=== PATIENT | male | born 1950 | race American Indian/Alaskan Native ===

== ENCOUNTER 2019-07-29 15:04 | Emergency (ER) | payer MEDICARE ==
--- NOTE | 2019-07-29 15:55 | Emergency Department Report ---
Blank Doc - Documentation Documentation: 69-year-old male that presents with left leg pain after about 4-[address]. This initial assessment/diagnostic orders/clinical plan/treatment(s) is/are subject to change based on patient's health status, clinical progression and re- assessment by fellow clinical providers in the ED. Further treatment and workup at subsequent clinical providers discretion. Patient/guardians urged not to elope from the ED as their condition may be serious if not clinically assessed and managed. Initial orders include: 1- Patient sent to [facility] for further evaluation and treatment 2- US DOppler
[2019-07-29 15:56] VITALS: BP 178/99
--- NOTE | 2019-07-29 16:38 | Vascular Lab Report ---
DUPLEX DOPPLER LOWER EXTREMITY VEINS, LEFT INDICATION: Left leg pain after a 6 hour bus trip. TECHNIQUE: Duplex doppler imaging was performed through the veins of the left lower extremity using venous compr ession and other maneuvers. COMPARISON: None available. FINDINGS: Common femoral vein: Negative. Superficial femoral vein: Negative. Popliteal vein: Negative. Calf veins: Negative. Additional findings: There is no evidence of a popliteal cyst or other abnormality. IMPRESSION: No sonographic evidence for DVT in the left lower extremity. Signer Name: Antelmo Denny MD Signed: 07/29/2019 4:34 PM Workstation Name: [id number]
--- NOTE | 2019-07-29 18:37 | Emergency Department Report ---
Chief Complaint: Extremity Injury, Lower Stated Complaint: LFT UPPER THIGH PAIN Time Seen by Provider: 07/29/19 15:54 - HPI History of Present Illness: This is a 69-year-old gentleman who is not known to this provider previously, visiting from [place], presents to the ER with a complaint of nontraumatic left infra-gluteal pain, left lateral thigh pain, and left inguinal crease pain, that radiates down the mid left lower extremity. The pain has been going on for a few days. There is no other complaints. The patient denies other injuries. On examination, he is neurovascularly intact. there is no facial droop. The tongue is midline. Extraocular movements are intact bilaterally. Patient speaking in full complete sentences. Shoulder shrug is intact bilaterally. Hearing is grossly intact bilaterally. Visual acuity intact to finger counting and color perception at a close distance. 5/5 strength 4 extremities. Sensation intact to light touch in 4 extremities. He has reproducible musculoskeletal tenderness in his left infra-gluteal region, and has pain with active and passive range of motion with left-sided hip abduction, adduction, and rotation. There is no redness, pus or streaking. He had a DVT study which was ordered prior to my evaluation, which was negative for acute disease. The patient does not appear to have an emergent medical condition at this time. He further endorses improvement with Tylenol [id number]. Elevated blood pressure is reviewed and appreciated, he can follow up with his outpatient primary care doctor for this. Vital Signs 07/29/19 15:54 Temperature 98.2 F Pulse Rate 90 Respiratory 20 Rate Blood Pressure 178/99 O2 Sat by Pulse 99 Oximetry 2+ pulses noted in the bilateral upper, lower extremities. There is no long bone tenderness. Musculoskeletal compartments are soft. The pelvis is stable. - Exam Vital Signs: Vital Signs 07/29/19 15:54 Temperature 98.2 F Pulse Rate 90 Respiratory 20 Rate Blood Pressure 178/99 O2 Sat by Pulse 99 Oximetry MSE screening note: Focused history and physical exam performed. Due to findings the following was ordered: ED Disposition for MSE Condition: Stable
[2019-07-29] MEDS ORDERED: ACETAMINOPHEN 325 MG TAB PO ONE (18:48)
[2019-07-29] MEDS ORDERED: IBUPROFEN 600 MG TAB PO ONE (18:48)
--- NOTE | 2019-07-29 18:53 | Emergency Department Report ---
ED Lower Extremity HPI - General Chief Complaint: Extremity Injury, Lower Stated Complaint: LFT UPPER THIGH PAIN Time Seen by Provider: 07/29/19 15:54 Source: patient, RN notes reviewed Mode of arrival: Ambulatory Limitations: No Limitations - History of Present Illness Initial Comments: During the history and physical, I am chaperoned by ER plastics technician Danis Mabry This is a 69-year-old gentleman who is not known to this provider previously. The patient is visiting from [place]. The patient presents to the ER with a complaint of a few days aching in for a gluteal pain, left-sided thigh pain, which is relieved with rest, Tylenol, and increases with range of motion. He denies fever, additional complaints, and specifically makes no comment of blad sadie or bowel retention or incontinence. MD Complaint: other -: days(s) Injury: Thigh: Left, Leg: Left Type of Injury: unknown Improves With: rest Worsens With: other - Related Data Allergies Allergy/AdvReac Type Severity Reaction Status Date / Time No Known Allergies Allergy Unverified 07/29/19 15:12 ED Review of Systems ROS: Stated complaint: LFT UPPER THIGH PAIN Other details as noted in HPI Constitutional: denies: fever Cardiovascular: denies: chest pain Gastrointestinal: denies: abdominal pain Musculoskeletal: myalgia Neurological: denies: numbness, paresthesias, confusion ED Past Medical Hx - Past Medical History Previous Medical History?: Yes Hx Hypertension: Yes Hx Heart Attack/AMI: Yes Hx Diabetes: Yes Additional medical history: high cholestrol - Surgical History Past Surgical History?: Yes Hx Open Heart Surgery: Yes - Social History Smoking Status: Never Smoker Substance Use Type: None ED Physical Exam - General Limitations: No Limitations General appearance: alert, in no apparent distress - Head Head exam: Present: atraumatic, normocephalic - Eye Eye exam: Present: normal appearance, EOMI. Absent: nystagmus - ENT ENT exam: Present: normal exam, normal orophraynx, mucous membranes moist, normal external ear exam - Neck Neck exam: Present: normal inspection, full ROM. Absent: tenderness, meningismus - Respiratory Respiratory exam: Present: normal lung sounds bilaterally. Absent: respiratory distress - Cardiovascular Cardiovascular Exam: Present: regular rate, normal rhythm, normal heart sounds. Absent: bradycardia, tachycardia, irregular rhythm, systolic murmur, diastolic murmur, rubs, gallop - GI/Abdominal GI/Abdominal exam: Present: soft. Absent: distended, tenderness, guarding, rebound, rigid, pulsatile mass - Rectal Rectal exam: Present: deferred - Extremities Exam Extremities exam: Present: normal inspection, full ROM, tenderness (there is reproducible muscular tenderness on the left infra-gluteal region, left lateral thigh, and there is reproducible pain with passive rotation of the left hip. There is no redness, pus, streaking.), other (2+ pulses noted in the bilateral upper, lower extremities. There is no long bone tenderness. Musculoskeletal compartments are soft. The pelvis is stable.). Absent: pedal edema, joint swelling, calf tenderness - Back Exam Back exam: Present: normal inspection, full ROM. Absent: tenderness, CVA tenderness (R), CVA tenderness (L), paraspinal tenderness, vertebral tenderness - Neurological Exam Neurological exam: Present: alert, normal gait, other (there is no facial droop. The tongue is midline. Extraocular movements are intact bilaterally. Patient speaking in full complete sentences. Shoulder shrug is intact bilaterally. Hearing is grossly intact bilaterally. Visual acuity intact to finger counting and color perception at a close distance. 5/5 strength 4 extremities. Sensation intact to light touch in 4 extremities.) - Psychiatric Psychiatric exam: Present: normal affect, normal mood - Skin Skin exam: Present: warm, dry, intact, normal color. Absent: rash ED Course Vital Signs 07/29/19 15:54 Temperature 98.2 F Pulse Rate 90 Respiratory 20 Rate Blood Pressure 178/99 O2 Sat by Pulse 99 Oximetry ED Lower Extremity MDM - Lab Data Vital Signs 07/29/19 15:54 Temperature 98.2 F Pulse Rate 90 Respiratory 20 Rate Blood Pressure 178/99 O2 Sat by Pulse 99 Oximetry - Medical Decision Making Differential diagnosis, including but not limited to: Sprain, strain, fracture, dislocation, bursitis Assessment and plan: 69-year-old gentleman with a few days reproducible left- sided musculoskeletal pain. He walks with a steady gait. He is neurovascularly intact. He makes no additional complaints. DVT study ordered prior to my evaluation, clinically do not suspect DVT, and it is negative for acute disease. Patient resting comfortably, and in no acute distress. He can follow-up with an outpatient primary care doctor for his elevated blood pressure. Exam not consistent with cellulitis, compartment syndrome, fracture, dislocation, or emergent condition. Critical care attestation.: If time is entered above; I have spent that time in minutes in the direct care of this critically ill patient, excluding procedure time. ED Disposition Clinical Impression: Left leg pain, Elevated blood pressure reading Disposition: TO HOME OR SELFCARE Is pt being admited?: No Does the pt Need Aspirin: No Condition: Stable Additional Instructions: Rest, avoid heavy lifting, and avoid strenuous physical activities. Patient may take [id number], Motrin, 400-600 mg, with food, every 6 hours, as needed for pain. Patient may alternate this with Tylenol, 650 mg, [id number], every 4-6 hours as needed for pain; daily maximum dose of Tylenol should not exceed 2 g in 24 hours. Recommend follow-up with her outpatient primary care doctor within the next month for elevated blood pressure. If patient takes antihypertensive medications, he should remain compliant with his medications. Long-term complications of hypertension includes stroke, heart attack, disability, paralysis, loss of quality of life. Return to the emergency room right away with new, worsened or different symptoms, or symptoms not present on the initial emergency room evaluation. Referrals: [facility] [Provider Group] - 3-5 Days [facility] [Provider Group] - 3-5 Days
== END 2019-07-29 19:10 | disposition home or self-care (01) ==
LOC: ED 15:04
DX: M79.652 Pain in left thigh (principal); I10 Essential (primary) hypertension; I25.2 Old myocardial infarction; E78.00 Pure hypercholesterolemia, unspecified; Z98.890 Other specified postprocedural states